=== PATIENT | female | born 1955 | race Caucasian/White ===

== ENCOUNTER 2022-04-09 03:23 | Inpatient (IN) | payer MEDICARE, OTHER ==
[~2022-04-09] VITALS: Ht 154.9 cm; Wt 70.3 kg
--- NOTE | 2022-04-09 03:23 | NUR ---
PT BIBA ALS ER BED 10
[2022-04-09 03:25] VITALS: BP 93/72
--- NOTE | 2022-04-09 03:31 | NUR ---
PT RECIEVED ON 15 CM H20 CPAP 100%. PT PLACED ON BIPAP 03/09 100% RR 16. VS HR 125, SPO2 95, WOB IMPROVED, BS DIMINISHED AND COARSE T/O.
[2022-04-09 03:46] LABS: HEMOGLOBIN 11.9 g/dL (12.0-16.0)
[2022-04-09] MEDS ORDERED: ONDA4SOL8 PO (03:49)
[2022-04-09] MEDS ORDERED: FENT100T TD (03:49)
[2022-04-09] MEDS ORDERED: ATRN INH (03:49)
[2022-04-09] MEDS ORDERED: MSCON15 PO (03:49)
[2022-04-09] MEDS ORDERED: ATI.5 SL (03:49)
[2022-04-09] MEDS ORDERED: AMLO5TAB PO (03:49)
[2022-04-09] MEDS ORDERED: HYOS-83 SL (03:49)
[2022-04-09] MEDS ORDERED: NICO1PAT16 TP (03:49)
[2022-04-09] MEDS ORDERED: SULF-954 PO (03:49)
[2022-04-09 03:51] LABS: HEMATOCRIT 35.9 % (36-48); MEAN CORPUSCULAR HEMOGLOBIN 30 pg (27-31); MEAN CORPUSCULAR HGB CONC 33 g/dL (33-37); MEAN CORPUSCULAR VOLUME 89.8 fL (80-94); PLATELET COUNT (AUTO) 269 K/uL (140-450); RED CELL DISTRIBUTION WIDTH 13.9 % (11.6-13.7)
[2022-04-09 04:05] LABS: ANION GAP 11.7 (8-16); CARBON DIOXIDE 27.9 mmol/L (21-32); CREATININE 2.9 mg/dL (0.6-1.3); POTASSIUM 4.6 mmol/L (3.5-5.1); TOTAL BILIRUBIN 0.4 mg/dL (0.0-1.0)
[2022-04-09 04:06] LABS: PROTHROMBIN TIME 10.8 secs (10.8-13.4)
[2022-04-09 04:21] LABS: WHITE BLOOD COUNT (AUTO) 34.1 K/uL (4.8-10.8)
[2022-04-09 04:22] LABS: LYMPHOCYTES % (MANUAL) 3 % (20-46); MONOCYTES % (MANUAL) 2 % (5-12)
[2022-04-09] MEDS ORDERED: OLANZapine 10 MG VIAL IM ONE (04:30)
[2022-04-09 04:49] LABS: ALBUMIN 2.7 g/dL (3.4-5.0)
--- NOTE | 2022-04-09 05:00 | NUR ---
PT RESTING. ON BIPAP. NO S/S OF DISTRESS NOTED AT THIS TIME. VSS.
[2022-04-09] MEDS ORDERED: CLINDAMYCIN 300MG/D5W PM 50 ML IV SCH (06:00)
--- NOTE | 2022-04-09 06:00 | NUR ---
Patient appears to be resting comfortably in bed. Vital Signs within normal limits. Respirations even and unlabored.
[2022-04-09] MEDS ORDERED: CLINDAMYCIN 600MG/D5W PM 50 ML IV ONE (06:02)
[2022-04-09] MEDS ORDERED: methylPREDNISolone SS 125 MG/2 ML VIAL IVP SCH (06:10)
[2022-04-09] MEDS ORDERED: NACL 0.9% 1,000 ML IV ONE (06:10)
[2022-04-09] MEDS: NACL 0.9% 500 ML IV SCH ×3 (06:11→07:09)
--- NOTE | 2022-04-09 06:28 | NUR ---
PER DR. AMADO AND DR. JASMEET CAMACHO TO GIVEN BOLUS TO PT. WILL FOLLOW THROUGH WITH ORDERS.
[2022-04-09] MEDS ORDERED: LEVOFLOXACIN 500 MG/D5W PREMIX 100 ML IV SCH ×2 (07:00→09:00)
[2022-04-09] MEDS: NACL 0.9% 1,000 ML IV SCH ×2 (07:03→17:00)
--- NOTE | 2022-04-09 07:22 | NUR ---
REPORT TO JATINDER RUIZ
--- NOTE | 2022-04-09 08:20 | NUR ---
pt on bipab, diffuse rhonchi sound, o2 sat 93%, ipap 12, edap 7, rate 16, o2 80%, st on cm, hr 116, ns running well lac, sr up times 2
[2022-04-09] MEDS: guaiFENesin 600 MG TABER PO SCH ×2 (09:00→20:57)
[2022-04-09] MEDS ORDERED: BUDESONIDE 0.5 MG/2 ML NEBU INH SCH (09:00)
[2022-04-09] MEDS: IPRATROPIUM 0.02% 0.5 MG/2.5 ML NEBU INH PRN ×2 (10:40→13:44)
[2022-04-09] MEDS: BUDESONIDE 0.5 MG/2 ML NEBU INH SCH (10:41)
[2022-04-09] MEDS: ALBUTEROL 0.083% 2.5 MG/3 ML NEBU INH PRN ×2 (10:42→13:44)
[2022-04-09 10:44] VITALS: BP 98/36
--- NOTE | 2022-04-09 12:00 | NUR ---
pt sleeping, on bipap, 90 %, diffuse rhonchi sound, o2 sat 93%, ipap 12, edap 7, rate 16, sr on cm, hr 94, sr up times 2
[2022-04-09] MEDS: CLINDAMYCIN 600MG/D5W PM 50 ML IV SCH ×2 (13:23→20:37)
[2022-04-09] MEDS: methylPREDNISolone SS 125 MG/2 ML VIAL IVP SCH ×2 (13:25→20:36)
[2022-04-09] MEDS: FUROSEMIDE 40 MG/4 ML VIAL IVP SCH ×2 (13:34→17:00)
--- NOTE | 2022-04-09 17:48 | NUR ---
pt sleeping, no ac distress, on bipap, 90%, diffuse rhonchi sound, o2 sat 93%, ipap 12, edap 7, rate 18, sr on cm, hr 92, sr up times 2
--- NOTE | 2022-04-09 19:22 | NUR ---
lasix scheduled at 1700, given earlier due to pt low o2 sat, frida lower crackles
[2022-04-09 20:05] LABS: APPEARANCE,URINE CLEAR (CLEAR); BILIRUBIN,URINE 2+ (NEGATIVE); BLOOD, URINE 2+ (NEGATIVE); COLOR,URINE YELLOW (YELLOW); LEUKOCYTE ESTERASE ,URINE NEGATIVE (NEGATIVE); NITRITE, URINE NEGATIVE (NEGATIVE); UGLUCOSE NEGATIVE (NEGATIVE)
--- NOTE | 2022-04-09 20:14 | NUR ---
REPORT TO CHLOE RUIZ WITH FULL RETURNED VERBAL UNDERSTANDING.
[2022-04-09 20:18] VITALS: BP 69/52
--- NOTE | 2022-04-09 20:30 | NUR ---
ASSUMED CARE AT THIS TIME. PT IS NONVERBAL AND IS BEDBOUND BUT IS ABLE TO FOLLOW SIMPLE COMMMANDS. LABORED BREATHING IPAP 12 EPAP 7 FI02 90% AND RATE 16. PT IS NPO. [facility] INTACT JUST PLACED UPON DIRECTOR SPEECH ARRIVAL. ST/ATIRAL FLUTTER TO BEDSIDE MONITOR. LEFT AC 20 GAUGE AND RIGHT WRIST 20 GAUGE. BOTH WORKING WELL.
[2022-04-09 21:22] LABS: WBC,URINE 0-5 /HPF (0-5)
[2022-04-09] MEDS ORDERED: NOREPINEPHRINE 4 MG in DEXTROSE 5% 250 ML IV PRN (22:15)
[2022-04-09] MEDS ORDERED: AMIODARONE 150 MG in DEXTROSE 5% 100 ML IV SCH (22:15)
[2022-04-09] MEDS ORDERED: DIGOXIN 0.25 MG/ML AMP IV SCH (22:15)
[2022-04-09] MEDS ORDERED: AMIODARONE 150 MG/3 ML VIAL IV ONE (22:30)
[2022-04-09] MEDS ORDERED: AMIODARONE 450 MG/9 ML VIAL IV ONE (22:46)
[2022-04-09] MEDS: AMIODARONE 450 MG in DEXTROSE 5% 250 ML IV SCH (23:17)
--- NOTE | 2022-04-10 00:23 | NUR ---
SPOKE W/ LEAD PORTFOLIO MANAGER DR HERNANDEZ AND SHE WAS INFORMED OF PT CONDITION ALONG W/ ABG RESULTS DR REQUESTING NO CHANGES AT THIS TIME AND TO CONTINUE NIV FOR NOW AND ATTEMPT TO CONTACT FACILITY AND/OR FAMILY
--- NOTE | 2022-04-10 00:24 | NUR ---
RT SPOKE TO MD DR. HERNANDEZ IF SHE WANTED TO INTUBATE PT DUE TO LABORED BREATHING EVEN ON BIPAP. PT IS ON HOSPICE BUT IS SAID TO BE FULL CODE. PT CAN'T CONFIRM CODE STATUS DUE TO CONDITION AND STAFF IS UNABLE TO CONTACT ANY FAMILY AND/OR POWER OF SCRATCH BRUSHER. STATED SHE DOES NOT WANT TO INTUBATE PT BECAUSE PT IS ON HOSPICE. MD ORDERED TO JUST KEEP HER ON BIPAP. ORDERED 1 AMP BIPAP IVP, MEROPENEM 500MG Q8H. VANCOMYCIN PER PHARMACY.
[2022-04-10] MEDS ORDERED: VANCOMYCIN PER PHARMACY MC PRN (00:30)
--- NOTE | 2022-04-10 00:30 | NUR ---
CALLED GARCIA HOOVER, NURSE STATES POLST IS BLANK AND HOSPICE BINDER IS ALSO BLANK. SHE GAVE A NUMBER TO [facility] TO TRY TO RETRIEVE INFORMATION
--- NOTE | 2022-04-10 00:36 | NUR ---
CALLED [facility] [phone], ANSWERING SERVICE STATES SHE WILL SEND A STAT CALL AND WILL CALL BACK
--- NOTE | 2022-04-10 00:39 | NUR ---
SPOKE TO LINO FROM [address] [place] [address] STATES SHE WILL SEND A FACE SHEET TO CONFIRM HOSPICE
--- NOTE | 2022-04-10 00:42 | NUR ---
RECEIVED FAX FROM [facility] CONFIRMING PT IS ON HOSPICE, STATES HER POLST IS NOT SIGNED THEREFORE PT IS FULL CODE.
[2022-04-10] MEDS ORDERED: SODIUM BICARBONATE 8.4% 50 MEQ in DEXTROSE 5% 1,000 ML IV SCH (00:50)
[2022-04-10] MEDS ORDERED: SODIUM BICARBONATE 8.4% PFS 50 MEQ/50 ML SYR IVP SCH (01:10)
--- NOTE | 2022-04-10 01:22 | NUR ---
PHARMACIST STATED IV MEROPENEM NEEDS TO APPROVED MY INFECTIOUS DISEASE MD DR. JEAN. SPOKE TO MD DR. HERNANDEZ AND MADE HER AWARE. DR. HERNANDEZ STATED DR. JEAN HAS NOT SEEN THE PT. DR. HERNANDEZ SAID TO GIVE MEROPENEM ONE TIME NOW AND HAVE DR. JEAN SEE PATIENT LATER. MADE PHARMACIST AWARE AND PHARMACIST APPROVED MEROPENEM ORDER. ALSO CONFIRMED THE DOSE FOR IVP BICARB 50MG. DURING THE PHONE CALL. DR. HERNANDEZ ALSO STATED TO MAKE PT DNR.
--- NOTE | 2022-04-10 01:24 | NUR ---
CONTACTED ABOUT PT'S SITUATION, UPDATED ON DECISION TO MAKE PT DNR/DNI. STATES TO MOVE FOWARD WITH 'S DECISION.
--- NOTE | 2022-04-10 01:35 | NUR ---
PER , DO NOT REMOVE PT FROM BIPAP, CONTINUE CURRENT ORDERS, ONLY DIFFERENCE IS IF PT IS IN PAIN WE CAN GIVE PAIN MEDICATION AND DNR STATUS. ORDERS CARRIED OUT.
[2022-04-10] MEDS ORDERED: MEROPENEM 1,000 MG in NACL 0.9% 50 ML IV SCH (01:40)
[2022-04-10] MEDS ORDERED: VANCOMYCIN 500 MG in DEXTROSE 5% 100 ML IV SCH (03:00)
[2022-04-10] MEDS ORDERED: MEROPENEM 500 MG VIAL IV ONE (03:01)
[2022-04-10] MEDS ORDERED: VANCOMYCIN 500 MG VIAL ONE (03:01)
[2022-04-10 04:23] VITALS: BP 100/59
[2022-04-10] MEDS: methylPREDNISolone SS 125 MG/2 ML VIAL IVP SCH ×2 (04:50→13:00)
[2022-04-10] MEDS ORDERED: MEROPENEM 500 MG in NACL 0.9% 50 ML IV SCH ×2 (05:00→21:00)
[2022-04-10] MEDS ORDERED: AMIODARONE 150 MG/3 ML VIAL IV ONE (06:24)
[2022-04-10] MEDS: AMIODARONE 450 MG in DEXTROSE 5% 250 ML IV SCH (06:53)
--- NOTE | 2022-04-10 07:30 | NUR ---
ASSUMED PATIENT CARE ON BIPAP, ON CARDIAC MO NITOR, PATIENT REPORTED DNR/DNI BY PREVIOUS NURSE, WILL CONTINUE TO MONITOR.
--- NOTE | 2022-04-10 07:50 | NUR ---
RT AT BEDSIDE FOR TREATMENT, WILL CONTINUE TO MONITOR.
[2022-04-10 08:33] VITALS: BP 124/64
[2022-04-10] MEDS: guaiFENesin 600 MG TABER PO SCH (09:00)
--- NOTE | 2022-04-10 09:15 | NUR ---
PATIENT HAS BEEN SCREENED AND CATEGORIZED HIGH NUTRITION RISK. PATIENT WILL BE SEEN WITHIN 1-2 DAYS OF ADMISSION. 04/09/22-04/11/[address]
--- NOTE | 2022-04-10 10:13 | NUR ---
PATIENT REMAINS ON BIPAP AT 100% O2 WILL CONTINUE TO MONITOR.
[2022-04-10] MEDS ORDERED: ALBUTEROL SULFATE/IPRATROPIU 3 ML SOL IH PRN (12:30)
[2022-04-10] MEDS: ALBUTEROL SULFATE/IPRATROPIU 3 ML SOL IH SCH ×2 (13:51→19:32)
[2022-04-10] MEDS: BUDESONIDE 0.5 MG/2 ML NEBU INH SCH ×2 (13:51→19:32)
--- NOTE | 2022-04-10 15:45 | NUR ---
dr graves at bedside for reassessment.
[2022-04-10] MEDS ORDERED: FUROSEMIDE 40 MG/4 ML VIAL IVP SCH (17:00)
[2022-04-10] MEDS ORDERED: NOREPINEPHRINE 4 MG/4 ML VIAL IV ONE ×2 (19:07)
--- NOTE | 2022-04-10 19:30 | NUR ---
RT AT BEDSIDE
--- NOTE | 2022-04-10 19:30 | NUR ---
Resumed care of patient, patient continues to be on cardiac monitoring. Running on fluids, amiodarone. Continues on bipap. Levophed started as ordered.
[2022-04-10 19:33] VITALS: BP 84/36
--- NOTE | 2022-04-10 19:40 | NUR ---
ATTEMPTED TO CALL ADMITTING PHYSICIAN TO CLARIFY LEVOPHED ORDER. NO ANSWER.
--- NOTE | 2022-04-10 20:42 | NUR ---
BIPAP SETTINGS TOITRATED TO 18/8 100% DUE TO DESAT OF LOW 80s CURRENT SPO2 84% WILL CONTINUE TO MONITOR
[2022-04-10 20:44] VITALS: BP 76/33
--- NOTE | 2022-04-10 20:46 | NUR ---
Dr. Yates examining patient.
--- NOTE | 2022-04-10 20:48 | NUR ---
ER MD attempted to place patient in central line position, patient desating and unable to tolerate central line position. Will contact admitting doctor
--- NOTE | 2022-04-10 20:57 | NUR ---
Spoke with Dr. Epps regarding pt vital signs, BP and O2 sat, continuing to decline despite starting on levophed and high bipap settings and pt not being able to tolerate central line placement when attempted by ERMD. Dr. Epps stated she would speak to Dr. Valencia and call back.
--- NOTE | 2022-04-10 21:02 | NUR ---
Received call from Dr. Epps who stated to discontinue all orders, discontinue bipap, and new orders to start pt on comfort measures protocol, start on morphine drip, and start O2 on NC for comfort measures.
--- NOTE | 2022-04-10 21:03 | NUR ---
RT at bedside aware and previous orders are discontinued.
[2022-04-10] MEDS ORDERED: MORPHINE SULFATE 50 MG in NACL 0.9% 45 ML IV PRN (21:10)
[2022-04-10] MEDS ORDERED: MORPHINE SULFATE 10 MG/ML VIAL ONE ×2 (21:13→21:21)
--- NOTE | 2022-04-10 21:20 | NUR ---
RT STATED THAT BIPAP WOULD BE D/C S/P MORPHINE GETTING STARTED.
--- NOTE | 2022-04-10 21:25 | NUR ---
WHILE MEDICATION WAS BEING MIXED, THE LINE WAS DEFECTIVE AND MORPHINE 50MG FOR MORPHINE DRIP WAS WASTED. MULTIPLE NURSES IN ROOM TO VERIFY THE WASTE OF MEDICATION. MORE MORPHINE WAS PULLED TO START THE MORPHINE DRIP FOR PATIENT PER ADMITING MD.
[2022-04-10] MEDS: MORPHINE SULFATE 10 MG/ML VIAL ONE ×2 (21:29→21:33)
--- NOTE | 2022-04-10 21:37 | NUR ---
PATIENT STARTED ON MORPHINE DRIP, RT CALLED TO BEDSIDE.
[2022-04-10 21:47] VITALS: BP 59/24
--- NOTE | 2022-04-10 21:47 | NUR ---
RT AT BEDSIDE
--- NOTE | 2022-04-10 21:50 | NUR ---
AISHWARYA AMADO AT BEDSIDE
--- NOTE | 2022-04-10 21:57 | NUR ---
MD NICHOLS MADE AWARE OF PT EXPIRATION.
--- NOTE | 2022-04-10 21:57 | NUR ---
TIME OF 7 PER AISHWARYA AMADO
--- NOTE | 2022-04-10 22:02 | NUR ---
PT'S FRIEND JAVIER MADE AWARE.
--- NOTE | 2022-04-10 22:04 | NUR ---
Spoke with, Rebeca, from [facility] regarding pt expiration. Body released. reference #[id number]
--- NOTE | 2022-04-10 22:06 | NUR ---
CALLED PRIMARY HARITHA NOBLE. LEFT MSG WITH ANSWERING SERVICE, STATES A NURSE WILL CALL BACK.
--- NOTE | 2022-04-10 22:10 | NUR ---
RECEIVED CALL BACK FROM LINO BECKETT RN FROM [facility], UPDATED ON EXPIRATION, STATES THEY WILL NACHO LAM.
--- NOTE | 2022-04-10 22:18 | NUR ---
Contacted the coroners office and spoke to Andi regarding pt expiration who stated spanish linguist would call back.
--- NOTE | 2022-04-10 22:19 | NUR ---
[facility] UPDATED ON PT'S EXPIRATION
--- NOTE | 2022-04-11 00:04 | NUR ---
Spoke with linen supply load builder Shar Adame regarding pt expiration who stated body can be released
--- NOTE | 2022-04-11 00:38 | NUR ---
Contacted [facility] regarding pt expiration and spoke with Mechelle. Per [facility], due to pt having no family they would be unable to accept patient.
--- NOTE | 2022-04-11 01:10 | NUR ---
BODY MOVED TO ROOM 128
[2022-04-11] MEDS ORDERED: LEVOFLOXACIN 250 MG/D5 PREMIX 50 ML IV SCH (07:00)
--- NOTE | 2022-04-11 12:17 | NUR ---
Spoke to Mauricio Azul and gave me Art a friend of the patient. Called Art at [phone] and Art is a friend and gave me Sue another friend [phone]. left a message to call back.
== END 2022-04-10 21:57 | DRG 871 ==
LOC: MED 03:23 → MTU 06:27
PROVIDERS: ADMIT Family Medicine; ATTEND Family Medicine
PROC: 5A09457 Assistance with Respiratory Ventilation, 24-96 Consecutive Hours, Continuous Positive Airway Pressure (ICD-10-PCS; principal; 2022-04-09)
DX: A41.9 Sepsis, unspecified organism (principal); J69.0 Pneumonitis due to inhalation of food and vomit; J96.01 Acute respiratory failure with hypoxia; N17.0 Acute kidney failure with tubular necrosis; E87.1 Hypo-osmolality and hyponatremia; I10 Essential (primary) hypertension; I89.0 Lymphedema, not elsewhere classified; Z66 Do not resuscitate; Z51.5 Encounter for palliative care; Z79.899 Other long term (current) drug therapy; Z88.8 Allergy status to other drugs, medicaments and biological substances; I46.9 Cardiac arrest, cause unspecified
CPT/HCPCS: 36415; 36600; 71045; 76770; 80053; 81001; 82550; 82553; 82570; 82803; 83605; 83880; 84484; 85025; 85610; 85730; 87040; 87081; 93005; 94640; 94660; 96365; 96372; 99291; J0282; J1940; J1956; J2185; J2270; J2930; J3370; J3490; J7613; J7626; J7644; Q0092